=== PATIENT | male | born 1985 | race Caucasian/White ===

== ENCOUNTER → 2018-11-28 16:26 | Outpatient (CLI) | payer BC, SELFPAY ==
--- NOTE | 2018-11-28 16:30 | US_ITS ---
STUDY: SCROTUM ULTRASOUND REASON FOR EXAM: Male, 33 years old. Palpable lump left testicle for 3 days. Discomfort. TECHNIQUE: Ultrasound evaluation of the scrotum was performed with color Doppler and static mtz-scale imaging. COMPARISON: None. FINDINGS: RIGHT TESTICLE INTRATESTICULAR: There is a normal size of the right testicle. The right testicle measures 4.7 x 3.2 x 2.6 cm. There is a homogenous echotexture. There is normal arterial and normal venous vascularity. There is no demonstrated right testicular mass or cyst. EXTRATESTICULAR: The epididymis is normal in size. The epididymis head measures 1.3 x 1.1 x 0.8 cm. There is normal vascularity of the epididymis. There is no demonstrated epididymal cystic structure. There is a small hydrocele. There is no demonstrated varicocele. There is no demonstrated extratesticular mass or cyst. LEFT TESTICLE INTRATESTICULAR: There is a normal size of the left testicle. The left testicle measures 4.8 x 3.1 x 2.2 cm. There is a homogenous echotexture. There is normal arterial and normal venous vascularity. There is no demonstrated left testicular mass or cyst. EXTRATESTICULAR: The epididymis is normal in size. The epididymis head measures 1.5 x 1.0 x 0.8 cm. There is normal vascularity of the epididymis. There is no demonstrated epididymal cystic structure. There is no demonstrated hydrocele. There is no demonstrated varicocele. Within the tail of the epididymis is 1.4 x 1.3 x 1.1 cm hypoechoic nodule which is palpable as per graduate student worksheet. US/Testicular with Arterial Flow IMPRESSION: Normal bilateral testicles. 1.4 cm hypoechoic nodule tail of the left epididymis corresponding to the palpable lump reported by the patient. This is very likely benign. Small right hydrocele. Electronically Signed: Wilver Perez MD at 4:34 EDT , Service support ,
== END ==
PROVIDERS: Family Provider Internal Medicine; PCP Internal Medicine; Referring Provider Urology; Visit Provider Urology
DX: N50.89 Other specified disorders of the male genital organs (principal)
CPT/HCPCS: 76870; 93976

== ENCOUNTER → 2020-10-21 15:49 | Outpatient (CLI) | payer BC, SELFPAY ==
[2017-09-26 09:30] VITALS: BMI 32.5
--- NOTE | 2020-10-21 16:10 | RAD_ITS ---
LUMBAR RADICULOPATHY; WOKE UP W/ PAIN IN LEFT HIP AND LEFT LEG ONE MONTH AGO. NO KNOWN INJURY EXAMINATION/TECHNIQUE: XR Spine Lumbar Min 4 Views: 4 views COMPARISON: None FINDINGS: VERTEBRAE: Preserved vertebral body height. No fracture. No spondylolisthesis. No spondylolysis Preservation of the normal lumbar lordosis. No significant facet arthropathy. DISCS: Decreased disc space L5-S1 with minimal spondylosis INCLUDED ABDOMEN: Included bowel gas pattern is non-obstructive. RAD/L/S Spine Min 4 Views IMPRESSION: Mild degenerative change at L5-S1 If symptoms persist consider MRI follow-up for further evaluation at 0644 Reported and signed by: Sasha Caicedo DO Electronically Signed: Sasha Caicedo DO at 6:43 EST Tel , Service support ,
== END ==
PROVIDERS: Referring Provider Chiropractor; Visit Provider Chiropractor
DX: M54.16 Radiculopathy, lumbar region (principal)
CPT/HCPCS: 72110

== ENCOUNTER → 2020-11-03 15:27 | Outpatient (CLI) | payer BC, SELFPAY ==
--- NOTE | 2020-11-03 15:40 | MRI_ITS ---
STUDY: MRI LUMBAR SPINE WITHOUT CONTRAST REASON FOR EXAM: Male, 35 years old. LUMBAR RADICULOPATHY,left leg pain, numbness TECHNIQUE: Standardized fat and water weighted pulse sequences were obtained in the sagittal and axial planes. COMPARISON: 10/21/2020. FINDINGS: T12-L1: Schmorl''s nodes. Normal disc height, hydration and morphology. Normal bilateral facet joints. Normal central canal and bilateral lateral recesses. Normal bilateral intervertebral neural foramina. Normal lumbar lordosis. There is no substantial scoliosis. Normal conus medullaris that terminates at the L1 level. 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 Terminus is excluded from the [id number]. L1-2: L2 Schmorl''s node. Normal disc height, hydration and morphology. Normal bilateral facet joints. Normal central canal and bilateral lateral recesses. Normal bilateral intervertebral neural foramina. L2-3: Normal endplates. Disc dehydration and mild disc space narrowing. Normal bilateral facet joints. Normal central canal and bilateral lateral recesses. Normal bilateral intervertebral neural foramina. L3-4: Normal endplates. Normal disc height, hydration and morphology. Normal bilateral facet joints. Normal central canal and bilateral lateral recesses. Normal bilateral intervertebral neural foramina. L4-5: Normal endplates. Mild disc space narrowing. Normal bilateral facet joints. Normal central canal and bilateral lateral recesses. Normal bilateral intervertebral neural foramina. L5-S1: Normal endplates. Disc dehydration. There is a small left paracentral disc extrusion causing posterior displacement of the traversing left S1 nerve root. Normal bilateral facet joints. Normal central canal and bilateral lateral recesses. Normal bilateral intervertebral neural foramina. Normal visualized sacral ala. MRI/Spine Lumbar (Routine) IMPRESSION: 1. L5-S1 disc extrusion displacing the left S1 nerve root. 2. Filum terminale lipoma, incidental finding. Electronically Signed: Florencia Gimenez MD at 17:16 EST Tel , Service support ,
== END ==
PROVIDERS: PCP Family Medicine; Referring Provider Chiropractor; Visit Provider Chiropractor
DX: M54.16 Radiculopathy, lumbar region (principal)
CPT/HCPCS: 72148

== ENCOUNTER 2021-01-19 09:28 | Outpatient (RCR) | payer BC, SELFPAY ==
[2017-09-26 09:30] VITALS: BMI 32.5
== END 2021-02-23 23:59 ==
LOC: IMMUN 09:28
PROVIDERS: PCP Family Medicine; Visit Provider Family Medicine
DX: Z23 Encounter for immunization (principal)
CPT/HCPCS: 0001A; 0002A; 91300